=== PATIENT | male | born 1995 | race Caucasian/White ===

== ENCOUNTER 2020-03-22 03:00 | Emergency (ER) | payer OTHER, SELFPAY ==
[2020-03-22 03:02] VITALS: BMI 43.0
--- NOTE | 2020-03-22 03:02 | ECG_ITS ---
APPROVED REPORT Exam: Resting ECG HR:76 bpm ECG Measurements Heart Rate 76 AXES DE 152 P 25 QRSd 92 QRS 45 QT 352 T 39 QTc 396 <Conclusion> Normal sinus rhythm Normal ECG Electronically signed by : Saurabh Willingham, 03/22/2020 17:44:16
[2020-03-22 03:03] VITALS: BP 155/88; PULSE 78; RESP 16; TEMP 36.7; O2SAT 98; BMI 43.0
--- NOTE | 2020-03-22 03:03 | XR_ITS ---
PROCEDURE: XR CHEST 2V CLINICAL INDICATION: chest pain COMPARISON: No exams were available for comparison FINDINGS: The cardiomediastinal silhouette and pulmonary vascularity are within normal limits. The lungs are clear without infiltrates, suspicious nodules, or pleural effusions. No acute bony abnormalities. IMPRESSION: No acute findings. Dictated by: Brandon Grayson MD 03/22/2020 07:33 Brandon Grayson MD in [facility] 03/22/2020 07:33
--- NOTE | 2020-03-22 03:21 | CT_ITS ---
PROCEDURE: CT ABDOMEN PELVIS W CON CLINICAL INDICATION: midepigastric pain Central epigastric pain with vomiting COMPARISON: No exams were available for comparison TECHNIQUE: IV Contrast: 75ML OPTIRAY 350 Oral Contrast None Axial images obtained with sagittal and coronal reformats. All CT scans at the facility use one or more dose reduction, viz: automated exposure control, ma/kV adjustment per patient size (including targeted exams where dose is matched to indication, i.e. head), or iterative reconstruction technique. FINDINGS: LOWER THORAX: No acute finding ABDOMEN & PELVIS: Fatty liver. Splenomegaly at 16 cm. The adrenal glands and pancreas and kidneys have an unremarkable appearance. Unremarkable appendix. No intestinal obstruction or free air. There is a tiny umbilical hernia which contains fat. No pelvic mass or abnormal fluid collection. There is a mild amount of retained colonic feces. No acute bony findings. IMPRESSION: No acute finding Splenomegaly with mild fatty liver Dictated by: Brandon Grayson MD 03/22/2020 08:11 Brandon Grayson MD in [facility] 03/22/2020 08:11
--- NOTE | 2020-03-22 03:24 | [facility].EDCP ---
ED Disposition Clinical Impression: Atypical chest pain Disposition: Home, Self-Care Condition on Discharge: Good Instructions: DI for Atypical Chest Pain Additional Instructions: fluids and need gb u/s Referrals: PCP,No [Primary Care Provider] - - Critical Care Critical Care Time: No Attestation: On 03/22/20, the high probability of a clinically significant, sudden or life threatening deterioration of the following system(s) required my full and direct attention, intervention and personal management. The time I documented below is in addition to time spent performing reported procedures but includes the following listed in this critical care notation. Medical Decision Making - Medical Records Medical records reviewed: Yes: I reviewed the patient's medical records. - Acmpos Inquiry Pt receiving controlled substance: No Vital Signs: 03/22/20 03:03 03/22/20 03:34 03/22/20 04:02 Temperature 98.0 F Temperature Source Oral Pulse Rate [Right Brachial] 78 75 73 Respiratory Rate 16 18 15 Blood Pressure [Right Arm] 155/88 H 145/89 H 142/79 H Blood Pressure Mean [Right Arm] 110 107 100 Blood Pressure Source [Right Arm] Automatic Cuff Automatic Cuff Blood Pressure Position [Right Arm] Sitting Sitting 02 Sat by Pulse Oximetry 98 97 97 Oxygen Delivery Method Room Air - Lab Data Lab results reviewed: Yes: I reviewed the patient's lab results. Lab Results 03/22/20 03:22: WBC 7.1, RBC 5.17, Hgb 15.5, Hct 43.8, MCV 84.7, MCH 30.1, MCHC 35.5 H, RDW 13.4, Plt Count 207, MPV 8.0, Neut % (Auto) 65.7, Lymph % (Auto) 27.4, [place] % (Auto) 4.7, Eos % (Auto) 1.8, Baso % (Auto) 0.4, Neut # (Auto) 4.6, Lymph # (Auto) 1.9, [place] # (Auto) 0.3, Eos # (Auto) 0.1, Baso # (Auto) 0.0 03/22/20 03:22: Sodium 139, Potassium 4.4, Chloride 104, Carbon Dioxide 25, Anion Gap 14.4, BUN 13, Creatinine 0.80, Estimated Creat Clear 143, Estimated GFR 116, Est GFR ( Amer) 140, Glucose 160 H, Calcium 9.3, Troponin I < 0.01, Amylase 56 03/22/20 03:22: Lipase 66 03/22/20 03:22: Total Bilirubin 0.4, Direct Bilirubin 0.1, Conjugated Bilirubin 0.0, Indirect Bilirubin 0.3, Unconjugated Bilirubin 0.3, AST 32, ALT 49, Alkaline Phosphatase 78, Total Protein 7.3, Albumin 4.5 03/22/20 03:22: SARS-CoV-2 IgG Ab (Rapid) Negative, SARS-CoV-2 IgM Ab (Rapid) Negative Result diagrams: 03/22/20 03:22 03/22/20 03:22 Orders (Tests/Meds): ED MEDICATIONS Generic Name Dose Route Start Last Admin Trade Name Freq PRN Reason Stop Dose Admin Sodium Chloride 1,000 mls @ 999 mls/hr 03/22/20 03:30 03/22/20 03:28 Sod Chlor 0.9% 1000ml Bag IV 03/22/20 04:30 999 mls/hr .Q1H1M [place] Administration Sodium Chloride 8 ml 03/22/20 03:22 Sodium Chloride 0.9% 10ml Vial IV 04/21/20 03:21 NEEDED PRN dilute pepcid Discontinued Medications Generic Name Dose Route Start Last Admin Trade Name Freq PRN Reason Stop Dose Admin Famotidine 20 mg 03/22/20 03:22 03/22/20 03:27 Pepcid 20mg/2ml Vial IV 03/22/20 03:23 20 mg ONCE ONE Administration Ioversol 75 ml 03/22/20 04:15 03/22/20 04:05 Rad-Optiray 350 100ml Vial IV 03/22/20 04:16 75 ml ONCE ONE Administration Protocol Ketorolac Tromethamine 30 mg 03/22/20 03:36 03/22/20 03:37 Toradol 30mg/Ml Vial IV 03/22/20 03:37 30 mg ONCE ONE Administration Metoclopramide HCl 10 mg 03/22/20 03:22 03/22/20 03:27 Reglan 10mg/2ml Vial IVP 03/22/20 03:23 10 mg ONCE ONE Administration Ondansetron HCl 4 mg 03/22/20 03:22 03/22/20 03:27 Zofran 4mg/2ml Vial IV 03/22/20 03:23 4 mg ONCE ONE Administration Sodium Chloride 10 ml 03/22/20 04:15 03/22/20 04:05 Rad-Saline Flush 10ml Syringe IV 03/22/20 04:16 10 ml ONCE ONE Administration ORDERS Category Date Time Status CT abdomen pelvis w con Stat Cat Scan 03/22/20 03:21 Taken XR chest 2V Stat Exams 03/22/20 03:03 Taken Troponin I Q3H Lab 03/22/20 06:15 Ordered Troponin I Q3H [place]
[2020-03-22 03:31] LABS: Basophils % 0.4 % (0.1-2.0); Eosinophils # 0.1 K/mm3 (0.0-0.4); Eosinophils % 1.8 % (0.1-12.0); Hematocrit 43.8 % (42.0-52.0); Hemoglobin 15.5 g/dL (14.1-18.0); Lymphocytes # 1.9 K/mm3 (0.7-4.5); Lymphocytes % 27.4 % (10-50); Mean Corpuscular HGB Conc 35.5 g/dL (31.8-35.4); Mean Corpuscular Hemoglobin 30.1 pg (27.0-31.2); Mean Corpuscular Volume 84.7 fl (80-94); Monocytes # 0.3 K/mm3 (0.1-1.0); Monocytes % 4.7 % (1.7-9.3); Neutrophils # 4.6 K/mm3 (1.8-7.8); Neutrophils % 65.7 % (37.0-80.0); Platelet Count 207 K/mm3 (142-424); Red Blood Count 5.17 M/mm3 (4.60-6.20); Red Cell Distribution Width 13.4 % (11.5-17.5); White Blood Count 7.1 K/mm3 (4.8-10.8)
[2020-03-22 03:34] VITALS: BP 145/89; PULSE 75; RESP 18; O2SAT 97
[2020-03-22 03:41] LABS: Alanine Aminotransferase 49 U/L (12-78); Albumin Level 4.5 g/dl (3.5-5.0); Alkaline Phosphatase 78 U/L (38-126); Aspartate Amino Transferase 32 U/L (17-59); Bilirubin,Direct 0.1 mg/dl (0.0-0.4); Bilirubin,Indirect 0.3 mg/dL (0.0-0.9); Bilirubin,Total 0.4 mg/dl (0.2-1.3); Bilirubin,Unconjugated 0.3 mg/dL (0.0-1.1); Lipase 66 U/L (23-300); Total Protein,Serum 7.3 g/dl (6.3-8.2)
[2020-03-22 03:42] LABS: Amylase 56 U/L (30-110); Anion Gap 14.4 mEq/L (5-15); Blood Urea Nitrogen 13 mg/dl (9-20); Calcium 9.3 mg/dl (8.4-10.2); Carbon Dioxide 25 mmol/L (22.0-30.0); Chloride 104 mmol/L (98-107); Creatinine Clearance Estimated 143 mL/min (50-200); Estimated Glomerular Filt Rate 116 ml/min (>60); GFR (African American) 140 ML/MIN (>60); Glucose 160 mg/dl (74-100); Potassium 4.4 mmoL/L (3.5-5.1); Sodium 139 mmol/L (136-145)
[2020-03-22 03:53] LABS: Troponin I < 0.01 ng/ml (0.00-0.034)
[2020-03-22 04:02] VITALS: BP 142/79; PULSE 73; RESP 15; O2SAT 97
--- NOTE | 2020-03-22 04:10 | PC.NURSE ---
received ct results
[2020-03-22 04:38] LABS: Coronavirus 19 IgG Antibody Negative (Negative); Coronavirus 19 IgM Antibody Negative (Negative)
[2020-03-22 05:22] VITALS: BP 147/82; PULSE 74; RESP 16; TEMP 36.7; O2SAT 94
== END 2020-03-22 05:22 | disposition home or self-care (01) ==
PROVIDERS: Emergency Provider Emergency Medicine
DX: R07.89 Other chest pain (principal); R10.10 Upper abdominal pain, unspecified
CPT/HCPCS: 71046; 74177; 80048; 80076; 82150; 83690; 84484; 85025; 86328; 93005; 96365; 96375; 99284; J2405; Q9967

== ENCOUNTER → 2020-03-24 12:58 | Outpatient (CLI) | payer OTHER, SELFPAY ==
[2020-03-24 13:21] LABS: Basophils % 0.5 % (0.1-2.0); Eosinophils # 0.1 K/mm3 (0.0-0.4); Eosinophils % 1.5 % (0.1-12.0); Hemoglobin 16.1 g/dL (14.1-18.0); Lymphocytes # 2.2 K/mm3 (0.7-4.5); Lymphocytes % 33.4 % (10-50); Mean Corpuscular Hemoglobin 29.9 pg (27.0-31.2); Mean Corpuscular Volume 85.4 fl (80-94); Mean Platelet Volume 8.4 fl (7.4-10.4); Monocytes # 0.3 K/mm3 (0.1-1.0); Monocytes % 4.8 % (1.7-9.3); Neutrophils % 59.8 % (37.0-80.0); Platelet Count 225 K/mm3 (142-424); Red Blood Count 5.39 M/mm3 (4.60-6.20); Red Cell Distribution Width 13.6 % (11.5-17.5); White Blood Count 6.7 K/mm3 (4.8-10.8)
[2020-03-24 14:43] LABS: Hemoglobin A1C 4.7 % (4.0-6.0)
[2020-03-24 14:55] LABS: Chloride 101 mmol/L (98-107); Potassium 4.3 mmoL/L (3.5-5.1); Sodium 139 mmol/L (136-145)
[2020-03-24 14:57] LABS: Alanine Aminotransferase 57 U/L (12-78); Aspartate Amino Transferase 35 U/L (17-59); Blood Urea Nitrogen 11 mg/dl (9-20); Estimated Glomerular Filt Rate 101 ml/min (>60); GFR (African American) 122 ML/MIN (>60)
[2020-03-24 14:58] LABS: Albumin Level 4.5 g/dl (3.5-5.0); Albumin/Globulin Ratio 1.7 (1.1-1.8); Alkaline Phosphatase 61 U/L (38-126); Anion Gap 14.3 mEq/L (5-15); Bilirubin,Total 0.9 mg/dl (0.2-1.3); Calcium 9.8 mg/dl (8.4-10.2); Carbon Dioxide 28 mmol/L (22.0-30.0); Chol/HDL Ratio 4.5 (1-3.5); Cholesterol 168 mg/dl (140-200); Globulin 2.7 g/dL (1.3-3.2); Glucose 98 mg/dl (74-100); HDL Cholesterol 37 mg/dl (40-60); Total Protein,Serum 7.2 g/dl (6.3-8.2); Triglycerides 137 mg/dl (30-150); VLDL Cholesterol 27 mg/dL (0-40)
[2020-03-24 15:09] LABS: Direct LDL Cholesterol 112.16 mg/dL (100-129)
--- NOTE | 2020-03-24 15:25 | US_ITS ---
PROCEDURE: US ABDOMEN LIMITED CLINICAL INDICATION: ABD PAIN, RUQ, SPLENOMEGALY COMPARISON: No exams were available for comparison FINDINGS: PANCREAS: Unremarkable. No obvious mass or abnormal fluid collection. No ductal dilatation LIVER: Diffuse increased echogenicity of the liver with poor through transmission of sound consistent with hepatic steatosis. No focal liver lesion demonstrated. There is appropriate direction of blood flow within non dilated portal vein. RIGHT KIDNEY: Unremarkable. Normal size and echogenicity. No hydronephrosis GALLBLADDER: No gallstones, gallbladder wall thickening, pericholecystic fluid, or biliary dilatation. IMPRESSION: Fatty liver otherwise neg Dictated by: Brandon Grayson MD 03/24/2020 16:17 Brandon Grayson MD in [facility] 03/24/2020 16:17
== END ==
PROVIDERS: PCP Internal Medicine Adolescent Medicine; Visit Provider Internal Medicine Adolescent Medicine
DX: Z00.00 Encounter for general adult medical examination without abnormal findings (principal); R10.11 Right upper quadrant pain; R16.1 Splenomegaly, not elsewhere classified; R73.9 Hyperglycemia, unspecified
CPT/HCPCS: 36415; 76705; 80053; 80061; 83036; 85025

== ENCOUNTER 2022-09-06 18:53 | Emergency (ER) | payer OTHER, SELFPAY ==
[2022-09-06 19:00] VITALS: BP 135/75; PULSE 103; RESP 20; TEMP 37.3; O2SAT 97; BMI 47.1
--- NOTE | 2022-09-06 19:33 | EXP.UTC ---
Discharge Plan Disposition Patient Disposition: Home, Self-Care Condition: Good Prescriptions Prescriptions: New amoxicillin [amoxicillin] 875 mg tablet 875 mg PO Q12H Qty: 20 0RF methylprednisolone 4 mg Tablets,Dose Pack 4 mg PO DIRECTED Qty: 21 0RF jcoihpxlxknbezx-nktjnbcsk-FM [Bromfed DM] 2-30-10 mg/5 mL Syrup 5 ml PO Q6H PRN (Reason: Cough) Qty: 240 0RF Referrals Follow up/Referrals: Saurabh Willingham MD [Primary Care Provider] - See instructions Activity Restrictions/Add. Instructions Additional Instructions/Restrictions: Drink plenty of fluids. Take tylenol or ibuprofen for pain or fever. Take the medications as directed. Follow up with your regular doctor. GO TO THE ER FOR ANY WORSENING SYMPTOMS Don't start the oral steroids until tomorrow, since you had the shot here today. Clinical Impressions Clinical Impression: Pharyngitis Instructions Patient Instructions: DI for Strep Throat Discharge ED Provider: Satinder Knight [facility] General Stated complaint: sore throat,right eye red and sore Mode of Arrival: Ambulatory Source of Information: Patient Limitations: No Limitations Time Seen by Provider: 09/06/22 19:21 Description of Symptoms (Recalled from Triage Doc. by RN): sore throat, fever HEENT Symptoms (Recalled from RN notes): Yes Resp Symptoms (Recalled from RN notes): No Skin Symptoms (Recalled from RN notes): No MS Symptoms (Recalled from RN notes): No Functional Status (Recalled from RN notes): n/a History of Present Illness Provider Complaint: He c/o sore throat for the past 2 days. Related Data Previous Rx's Medication Instructions Recorded amoxicillin 875 mg tablet 875 mg PO Q12H #20 tabs 09/06/22 wkikgghkhpxibzv-dedejehybbykwok-DM 5 ml PO Q6H PRN Cough #240 mL 09/06/22 2 mg-30 mg-10 mg/5 mL oral syrup (Bromfed DM) methylprednisolone 4 mg tablets in 4 mg PO DIRECTED #21 tabs 09/06/22 a dose pack Allergies Allergy/AdvReac Type Severity Reaction Status Date / Time No Known Allergies Allergy Verified 09/06/22 19:20 Worker's Comp Is this a Worker's Comp case?: No [facility] Disclaimer: The information contained in this section may have been updated after the patient was seen, as this information can be updated by other users. Social History Smoking Status: Never smoker alcohol intake: never current occupational status: other Travel in the last 8 weeks: None ROS Obtained: Yes All systems reviewed & no additional complaints except as documented Constitutional Constitutional: Reports chills and Reports fever(s) Eyes Eyes: Denies eye discharge ENT Ears, Nose, Mouth, and Throat: Reports as per HPI Cardiovascular Cardiovascular: Denies chest pain Respiratory Respiratory: Denies chest congestion and Reports cough Gastrointestinal Gastrointestingal: Reports nausea; Denies abdominal pain, constipation, cramping, diarrhea or vomiting Musculoskeletal Musculoskeletal: Denies arthralgias Integumentary/Breasts Skin/Breast: Denies rash Neurologic Neurologic: Denies paresthesias Physical Exam General General appearance: alert and in no apparent distress Head Head exam: atraumatic, normocephalic and normal inspection Eye Eye exam: Present normal appearance, PERRL and EOMI ENT ENT exam: Present mucous membranes moist and normal external ear exam Expanded ENT Exam TM/Canal exam: Bilateral TM: erythema and bulging Nose exam: Absent sinus tenderness Mouth exam: Present normal external inspection; Absent drooling Teeth exam: Present normal inspection Throat exam: Present tonsillar erythema, tonsillomegaly and tonsillar exudate Neck Neck exam: Present normal inspection, full ROM and trachea midline; Absent tenderness, meningismus or lymphadenopathy Chest Chest inspection: Present normal inspection and symmetric chest wall rise; Absent tenderness Respiratory Respiratory exam: Pr
[2022-09-06 20:12] VITALS: BP 135/75; PULSE 103; RESP 20; TEMP 37.3; O2SAT 97
== END 2022-09-06 20:12 | disposition home or self-care (01) ==
PROVIDERS: Emergency Provider Nurse Practitioner Family; PCP Internal Medicine Adolescent Medicine
DX: J02.9 Acute pharyngitis, unspecified (principal)
CPT/HCPCS: 99212; G0463; J0696